=== PATIENT | female | born 1965 | race Caucasian/White ===

== ENCOUNTER 2018-10-06 10:38 | Emergency (ER) | payer BC ==
[~2018-10-06] VITALS: Ht 160 cm; Wt 95.7 kg
[2018-10-06 11:49] LABS: BASO # 0.1 x10^3/uL (0.0-0.2); BASO % 0 % (0-3); EOS # 0.1 x10^3/uL (0.0-0.7); EOS % 1 % (0-3); HEMOGLOBIN 13.5 g/dL (12.0-15.5); LYMPH # 3.2 x10^3/uL (1.0-4.8); LYMPH % 21 % (24-48); MEAN CORPUSCULAR HEMOGLOBIN 27 pg (25-35); MEAN CORPUSCULAR HGB CONC 33 g/dL (31-37); MEAN CORPUSCULAR VOLUME 83 fL (79-100); MONO # 0.6 x10^3/uL (0.0-1.1); MONO % 4 % (0-9); NEUT # 11.1 x10^3uL (1.8-7.7); NEUT % 74 % (31-73); PLATELET COUNT 428 x10^3/uL (140-400); RED BLOOD COUNT 4.92 x10^6/uL (3.50-5.40); WHITE BLOOD COUNT 15.2 x10^3/uL (4.0-11.0)
[2018-10-06 11:55] LABS: BILIRUBIN,URINE NEGATIVE (NEG); CLARITY,URINE CLEAR; COLOR,URINE YELLOW; NITRITE,URINE NEGATIVE (NEG); PROTEIN,URINE NEGATIVE (NEG-TRACE); UROBILINOGEN,URINE 0.2 mg/dL (0.2 mg/dL)
[2018-10-06 11:57] LABS: CALCIUM 9.1 mg/dL (8.5-10.1); CREATININE 0.8 mg/dL (0.6-1.0); GFR 74.7
[2018-10-06 11:59] LABS: PROTHROMBIN TIME PATIENT 12.7 SEC (11.7-14.0)
[2018-10-06] MEDS ORDERED: CONTRAST GIVEN. MC PRN (12:00)
[2018-10-06] MEDS: IOHEXOL 240 MG/ML 50ML VIAL. PO ONE (12:00)
[2018-10-06 12:03] LABS: ALBUMIN 3.3 g/dL (3.4-5.0); TOTAL BILIRUBIN 0.2 mg/dL (0.2-1.0); TOTAL PROTEIN 6.7 g/dL (6.4-8.2)
[2018-10-06 12:06] LABS: BACTERIA,URINE FEW /HPF (0-FEW); RBC,URINE 0 /HPF (0-2); SQUAMOUS EPITHELIAL CELL,UR FEW /LPF
[2018-10-06] MEDS: PANTOPRAZOLE IV PUSH 40 MG VIAL. IVP ONE (12:12)
[2018-10-06] MEDS: IV NORMAL SALINE 1000ML BAG 1,000 ML IV ONE (12:12)
[2018-10-06] MEDS: IOHEXOL 300 MG/ML 100ML VIAL. IV ONE (13:08)
--- NOTE | 2018-10-06 13:33 | PHYS DOC ---
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 Patient complaining of lower abdominal cramping pain since this morning and 3 episodes of bright red bleeding with a small amount of blood without clots since this morning. Patient states she had a normal bowel movement yesterday and this morning did not have any bowel movement or rectal pain. Patient denies history of rectal bleeding and taking anticoagulation and NSAIDS. Patient rated her abdominal pain as a moderate pain and denies nausea and vomiting, urinary symptoms, fever and chills, chest pain and shortness of breath. Review of Systems Review of Systems Constitutional: Denies fever or chills [] Eyes: Denies change in visual acuity, redness, or eye pain [] HENT: Denies nasal congestion or sore throat [] Respiratory: Denies cough or shortness of breath [] Cardiovascular: No additional information not addressed in HPI [] GI: Reports abdominal pain, rectal bleeding, denies vomiting, constipation or diarrhea [] : Denies dysuria or hematuria [] Musculoskeletal: Denies back pain or joint pain [] Integument: Denies rash or skin lesions [] Neurologic: Denies headache, focal weakness or sensory changes [] Endocrine: Denies polyuria or polydipsia [] All other systems were reviewed and found to be within normal limits, except as documented in this note. Current Medications Current Medications Current Medications Medications (Trade) Dose Ordered Sig/[facility] Start Time Stop Time Status Last Admin Dose Admin Fentanyl Citrate (Fentanyl 2ml Vial) 50 mcg 1X ONCE 10/06/18 13:30 10/06/18 13:34 DC 10/06/18 14:02 50 MCG Info (CONTRAST GIVEN -- Rx MONITORING) 1 each PRN DAILY PRN 10/06/18 12:00 10/06/18 14:33 DC Iohexol (Omnipaque 240 Mg/ml) 30 ml 1X ONCE 10/06/18 12:00 10/06/18 12:01 DC 10/06/18 12:00 30 ML Iohexol (Omnipaque 300 Mg/ml) 75 ml 1X ONCE 10/06/18 12:00 10/06/18 12:01 DC 10/06/18 13:08 75 ML Pantoprazole Sodium (PROTONIX VIAL for IV PUSH) 40 mg 1X ONCE 10/06/18 11:45 10/06/18 11:59 DC 10/06/18 12:12 40 MG Sodium Chloride 1,000 ml @ 1,000 mls/hr 1X ONCE 10/06/18 11:45 10/06/18 12:44 DC 10/06/18 12:12 1,000 MLS/HR Allergies Allergies Allergies Coded Allergies Type Severity Reaction Last Updated Verified ibuprofen Allergy Intermediate 10/06/18 Yes Physical Exam Physical Exam Constitutional: Well developed, well nourished, mild distress, non-toxic appearance. [] HENT: Normocephalic, atraumatic, oropharynx dry. Eyes: PERRLA, EOMI, conjunctiva normal, no discharge. [] Neck: Normal range of motion, no tenderness, supple, no stridor. [] Cardiovascular:Heart rate regular rhythm, no murmur [] Lungs & Thorax: Bilateral breath sounds clear to auscultation [] Abdomen: Bowel sounds normal, soft, no tenderness, no masses, no pulsatile mass es. Rectal exam with present of glost tile shader showed normal external anal area without hemorrhoid or anal fissure, sphincter tone, a small amount of blood in rectum. Skin: Warm, dry, no erythema, no rash. [] Back: No tenderness, no CVA tenderness. [] Extremities: No tenderness, no cyanosis, no clubbing, ROM intact, no edema. [] Neurologic: Alert and oriented X 3, normal motor function, normal sensory function, no focal deficits noted. [] Psychologic: Affect normal, judgement normal, mood normal. [] Current Patient Data Vital Signs Vital Signs Date Time Temp Pulse Resp B/P (MAP) Pulse Ox O2 Delivery O2 Flow Rate FiO2 10/06/18 14:00 66 16 142/68 (92) 99 Room Air 10/06/18 11:36 98.6 98.6 Lab Values Laboratory Tests Test 10/06/18 11:00 10/06/18 11:25 Urine Collection Type Unknown Urine Color Yellow Urine Clarity Clear Urine pH 5.0 Urine Specific [place] 1.015 Urine Protein Negative mg/dL (NEG-TRACE) Urine Glucose (UA) Negative mg/dL (NEG) Urine Ketones (Stick) Negative mg/dL (NEG) Urine Blood Negative (NEG) Urine Nitrite Negative (NEG) Urine Bilirubin Negative (NEG) Urine Urobilinogen Dipstick 0.2 mg/dL (0.2 mg/dL) Urine Leukocyte Esterase Trace (NEG) Urine RBC 0 /HPF (0-2) Urine WBC 1-4 /HPF (0-4) Urine Squamous Epithelial Cells Few /LPF Urine Bacteria Few /HPF (0-FEW) White Blood Count 15.2 x10^3/uL (4.0-11.0) H Red Blood Count 4.92 x10^6/uL (3.50-5.40) Hemoglobin 13.5 g/dL (12.0-15.5) Hematocrit 41.0 % (36.0-47.0) Mean Corpuscular Volume 83 fL (79-100) Mean Corpuscular Hemoglobin 27 pg (25-35) Mean Corpuscular Hemoglobin Concent 33 g/dL (31-37) Red Cell Distribution Width 14.0 % (11.5-14.5) Platelet Count 428 x10^3/uL (140-400) H Neutrophils (%) (Auto) 74 % (31-73) H Lymphocytes (%) (Auto) 21 % (24-48) L Monocytes (%) (Auto) 4 % (0-9) Eosinophils (%) (Auto) 1 % (0-3) Basophils (%) (Auto) 0 % (0-3) Neutrophils # (Auto) 11.1 x10^3uL (1.8-7.7) H Lymphocytes # (Auto) 3.2 x10^3/uL (1.0-4.8) Monocytes # (Auto) 0.6 x10^3/uL (0.0-1.1) Eosinophils # (Auto) 0.1 x10^3/uL (0.0-0.7) Basophils # (Auto) 0.1 x10^3/uL (0.0-0.2) Prothrombin Time 12.7 SEC (11.7-14.0) Prothrombin Time INR 1.0 (0.8-1.1) PTT 27 SEC (24-38) Sodium Level 141 mmol/L (136-145) Potassium Level 4.0 mmol/L (3.5-5.1) Chloride Level 104 mmol/L (98-107) Carbon Dioxide Level 25 mmol/L (21-32) Anion Gap 12 (6-14) Blood Urea Nitrogen 10 mg/dL (7-20) Creatinine 0.8 mg/dL (0.6-1.0) Estimated GFR (Cockcroft-Gault) 74.7 BUN/Creatinine Ratio 13 (6-20) Glucose Level 123 mg/dL (70-99) H Calcium Level 9.1 mg/dL (8.5-10.1) Total Bilirubin 0.2 mg/dL (0.2-1.0) Aspartate Amino Transferase (AST) 20 U/L (15-37) Alanine Aminotransferase (ALT) 24 U/L (14-59) Alkaline Phosphatase 87 U/L (46-116) Total Protein 6.7 g/dL (6.4-8.2) Albumin 3.3 g/dL (3.4-5.0) L Albumin/Globulin Ratio 1.0 (1.0-1.7) Laboratory Tests 10/06/18 11:25 Laboratory Tests 10/06/18 11:25 EKG EKG [] Radiology/Procedures Radiology/Procedures [facility] [address] [place], [place] [id number] IMAGING REPORT Signed PATIENT: LUCIO ROSSI ACCOUNT: [id number] : 1965 LOCATION: ER AGE: 53 SEX: F EXAM STATUS: REG ER ORD. PHYSICIAN: CLAUDIA ALCANTARA MD REASON: rectal bleeding PROCEDURE: CT ABD PELV W/ORAL&IV CONTRAST PQRS Compliance Statement: One or more of the following individualized dose reduction techniques were utilized for this examination: 1. Automated exposure control 2. Adjustment of the mA and/or kV according to patient size 3. Use of iterative reconstruction technique CT ABD PELV W/ORAL IV CONTRAST Clinical Indication: Rectal bleeding, abdominal pain. Comparison: None. Technique: Helical CT imaging of the abdomen and pelvis is performed after 75 cc of Omnipaque 300 IV contrast. Oral contrast also given. Findings: The lung bases are clear. Cardiac size normal. Fatty infiltration of the liver, focal fatty sparing along the gallbladder fossa. The gallbladder, spleen, pancreas, and adrenal glands are normal. Kidneys enhance symmetrically, no hydronephrosis. There are 2 small probable right renal cysts. Stomach unremarkable. No dilated small bowel. The appendix is normal. There are a few diverticula of the distal colon. There is wall thickening of the distal transverse and proximal and mid descending colon. No surrounding inflammation is seen. No other colon wall thickening. There is a massiel hepatis lymph node measuring 1.4 cm. There is a massiel hepatis/precaval lymph node measuring 1.4 cm. No abdominal free fluid. Atrophic uterus. Urinary bladder is not well distended accentuating wall thickness. No pelvic free fluid. No acute bone abnormality. IMPRESSION: 1. Wall thickening of the distal transverse and proximal and mid descending colon suggestive of nonspecific colitis. Etiologies include infectious, inflammatory bowel disease, or ischemic given the distribution (however minimal atherosclerotic disease is seen). 2. Fatty infiltration of the liver. 3. There are 2 mildly enlarged massiel hepatis lymph nodes, nonspecific. 4. Mild distal colon diverticulosis without diverticulitis. Electronically signed by: Pascual Farrell MD (10/06/2018 1:32 PM) [id number] DICTATED and SIGNED BY: PASCUAL FARRELL MD DATE: 10/06/18 1332 Course & Med Decision Making Course & Med Decision Making Pertinent Labs and Imaging studies reviewed. (See chart for details) Evaluation of patient in ER showed 53-year-old female patient with complaining of rectal bleeding since this morning with lower abdominal cramping pain. She had stable vital signs and unremarkable labs except for mild leukocytosis. CT of abdomen and pelvis showed colitis. Patient never had colonoscopy. Patient was advised to follow-up with GI specialist for possible colonoscopy and return to ER if continued to have rectal bleeding. Dragon Disclaimer Dragon Disclaimer This electronic medical record was generated, in whole or in part, using a voice recognition dictation system. Departure Departure Impression: Primary Impression: Rectal bleeding Additional Impressions: Colitis Elevated blood pressure reading without diagnosis of hypertension Disposition: 01 HOME, SELF-CARE (at 1418) Condition: IMPROVED Referrals: UNKNOWN PCP NAME (PCP) JW BROWN MD Patient Instructions: Colitis, Form - Blood Pressure Record Sheet, How to Take Your Blood Pressure, [id number], Managing Your High Blood Pressure, Rectal Bleeding Additional Instructions: Drink plenty of liquids Follow-up with your primary care physician in 3-5 days Return to ER if not getting better Follow up with on-call surgeon for possible colonoscopy Scripts Hydrocodone/Apap 5-325 (NORCO 5-325 TABLET) 1 Each Tablet 1 TAB PO PRN Q6HRS PRN for PAIN, #14 TAB 0 Refills Prov: CLAUDIA ALCANTARA MD 10/06/18 Problem Qualifiers CLAUDIA ALCANTARA MD October 06, 2018 13:33
[2018-10-06 14:00] VITALS: BP 142/68
[2018-10-06] MEDS: fentaNYL PF VIAL 100 MCG/2 ML VIAL IV ONE (14:02)
[2018-10-06] MEDS ORDERED: HYDR-3164 PO (14:19)
== END 2018-10-06 14:27 | disposition home or self-care (01) ==
LOC: ER 10:38
DX: K52.89 Other specified noninfective gastroenteritis and colitis (principal); K62.5 Hemorrhage of anus and rectum; K57.32 Diverticulitis of large intestine without perforation or abscess without bleeding; K76.0 Fatty (change of) liver, not elsewhere classified; M19.90 Unspecified osteoarthritis, unspecified site; F17.200 Nicotine dependence, unspecified, uncomplicated; Z98.890 Other specified postprocedural states; Z88.6 Allergy status to analgesic agent
CPT/HCPCS: 36415; 74177; 80053; 81001; 85025; 85610; 85730; 86850; 86900; 86901; 96361; 96374; 96375; 99285; C9113; J3010; J7030; Q9966; Q9967

== ENCOUNTER 2019-06-08 12:35 | Emergency (ER) | payer BC ==
[~2019-06-08] VITALS: Ht 162.6 cm; Wt 102.2 kg
[~2019-06-08 12:35] MED LIST: HYDR-3164 PO
[2019-06-08 12:55] VITALS: BP 151/88
--- NOTE | 2019-06-08 14:08 | RAD ---
Examination: LUMBAR SPINE 2-3V, HIP LEFT 2V WITH PELVIS History: Fall, pain Comparison/Correlation: None Findings: Frontal and lateral views of the lumbar spine were obtained. Coned-down L5-S1 lateral views also provided. Frontal view of the pelvis, frontal view of the left hip, and frog leg lateral view of the left hip were provided. Alignment is normal. Mild disc space narrowing at L3-4 and L4-5 noted. Spurring noted. No fracture or bone destruction. The joint spaces are unremarkable. Sacroiliac joints are grossly unremarkable minimal subchondral sclerosis and narrowing. No definite degenerative change of the hip joints. Impression: Mild low lumbar spine degenerative change. No suspicious findings of the left hip joint. Consider further evaluation if occult process is a persistent concern. Electronically signed by: Francis Bustamante MD (06/08/2019 2:05 PM) [facility]
[2019-06-08] MEDS ORDERED: METH4TAB2 PO (15:13)
[2019-06-08] MEDS ORDERED: CYCL10TA2 PO (15:13)
[2019-06-08] MEDS ORDERED: DICL50TA2 PO (15:13)
--- NOTE | 2019-06-08 15:14 | PHYS DOC ---
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 Patient denies any loss of consciousness. She states the pain is worse on ambulating as well as sitting on her left hip. Denies anything specifically relieving the pain. Denies any loss of bowel/bladder function. Review of Systems Review of Systems Constitutional: Denies fever or chills [] GI: Denies abdominal pain, nausea, vomiting, bloody stools or diarrhea [] : Denies dysuria or hematuria [] Musculoskeletal: Reports low back pain radiating to the right LE Integument: Denies rash or skin lesions [] Neurologic: Denies headache, focal weakness or sensory changes [] All other systems were reviewed and found to be within normal limits, except as documented in this note. Allergies Allergies Allergies Coded Allergies Type Severity Reaction Last Updated Verified Penicillins Allergy Intermediate 06/08/19 Yes Physical Exam Physical Exam Constitutional: Well developed, well nourished, no acute distress, non-toxic appearance. [] HENT: Normocephalic, atraumatic, bilateral external ears normal, oropharynx moist, no oral exudates, nose normal. [] Eyes: PERRLA, EOMI, conjunctiva normal, no discharge. [] Neck: Normal range of motion, no tenderness, supple, no stridor. [] Cardiovascular:Heart rate regular rhythm, no murmur [] Lungs & Thorax: Bilateral breath sounds clear to auscultation [] Abdomen: Bowel sounds normal, soft, no tenderness, no masses, no pulsatile masses. [] Skin: Warm, dry, no erythema, no rash. [] Back: No tenderness, no CVA tenderness. [] Extremities: No tenderness, no cyanosis, no clubbing, ROM intact, no edema. [] Neurologic: Alert and oriented X 3, normal motor function, normal sensory function, no focal deficits noted. [] Psychologic: Affect normal, judgement normal, mood normal. [] Current Patient Data Vital Signs Vital Signs Date Time Temp Pulse Resp B/P (MAP) Pulse Ox O2 Delivery O2 Flow Rate FiO2 06/08/19 12:55 98.9 78 19 151/88 (109) 98 Room Air 98.9 EKG EKG [] Radiology/Procedures Radiology/Procedures []PROCEDURE: LUMBAR SPINE 2-3V Examination: LUMBAR SPINE 2-3V, HIP LEFT 2V WITH PELVIS History: Fall, pain Comparison/Correlation: None Findings: Frontal and lateral views of the lumbar spine were obtained. Coned-down L5-S1 lateral views also provided. Frontal view of the pelvis, frontal view of the left hip, and frog leg lateral view of the left hip were provided. Alignment is normal. Mild disc space narrowing at L3-4 and L4-5 noted. Spurring noted. No fracture or bone destruction. The joint spaces are unremarkable. Sacroiliac joints are grossly unremarkable minimal subchondral sclerosis and narrowing. No definite degenerative change of the hip joints. Impression: Mild low lumbar spine degenerative change. No suspicious findings of the left hip joint. Consider further evaluation if occult process is a persistent concern. Electronically signed by: Francis Lal MD (06/08/2019 2:05 PM) [facility] DICTATED and SIGNED BY: FRANCIS LAL MD DATE: 06/08/19 1400 Course & Med Decision Making Course & Med Decision Making Pertinent Labs and Imaging studies reviewed. (See chart for details) This is a 54-year-old female patient presenting with left low back pain radiating to the LLE after falling yesterday. X-rays of the lumbar spine, left hip including pelvis are negative. Discharged to home. Follow-up with PCP in 1-2 weeks. Dragon Disclaimer Dragchelsea Disclaimer This electronic medical record was generated, in whole or in part, using a voice recognition dictation system. Departure Departure Impression: Primary Impression: Fall from standing Additional Impressions: Lumbar contusion Sciatica of left side Disposition: HOME, SELF-CARE Condition: STABLE Referrals: UNKNOWN PCP NAME (PCP) follow up with your doctor in 1-2 weeks Patient Instructions: Contusion, [id number], Sciatica, [id number] Additional Instructions: You were evaluated in the emergency room, your left hip x-rays including pelvis as well as a low back x-rays are negative for any acute findings. Take the prescribed medications as ordered. Follow-up with your own doctor in 1-2 weeks Scripts Diclofenac Potassium (DICLOFENAC POTASSIUM) 50 Mg Tablet 1 TAB PO BID, #20 TAB Prov: SHANTANU GROVER SHARATH 06/08/19 Methylprednisolone (MEDROL) 4 Mg Tab.ds.pk 1 PKG PO UD, #1 PKG Prov: SHANTANU GROVER MATERIALS DIRECTOR 06/08/19 Cyclobenzaprine Hcl (CYCLOBENZAPRINE HCL) 10 Mg Tablet 1 TAB PO TID, #30 TAB Prov: SHANTANU GROVER SHARATH 06/08/19 Problem Qualifiers Primary Impression: Fall from standing Encounter type: initial encounter Qualified Codes: W19.XXXA - Unspecified fall, initial encounter Additional Impressions: Lumbar contusion Encounter type: initial encounter Qualified Codes: S30.0XXA - Contusion of lower back and pelvis, initial encounter REILLYSHANTANU SHARATH Jun 08, 2019 15:14
== END 2019-06-08 15:15 | disposition home or self-care (01) ==
LOC: ER 12:35
DX: S30.0XXA Contusion of lower back and pelvis, initial encounter (principal); M54.42 Lumbago with sciatica, left side; M25.552 Pain in left hip; M19.90 Unspecified osteoarthritis, unspecified site; F43.12 Post-traumatic stress disorder, chronic; Z98.890 Other specified postprocedural states; Z88.0 Allergy status to penicillin; W18.30XA Fall on same level, unspecified, initial encounter; Y93.89 Activity, other specified; Y92.89 Other specified places as the place of occurrence of the external cause; Y99.8 Other external cause status
CPT/HCPCS: 72100; 73502; 99284

== ENCOUNTER 2019-11-10 00:47 | Emergency (ER) | payer BC ==
[~2019-11-10] VITALS: Ht 160 cm; Wt 103.6 kg
[~2019-11-10 00:47] MED LIST changes: +CYCL10TA2 PO; +DICL50TA2 PO; +METH4TAB2 PO
[2019-11-10 01:17] VITALS: BP 138/71
[2019-11-10] MEDS ORDERED: CIPR7.5D AD (01:47)
[2019-11-10] MEDS ORDERED: TRAM50TA PO (01:47)
[2019-11-10] MEDS ORDERED: CEFD300C PO (01:47)
--- NOTE | 2019-11-10 01:47 | PHYS DOC ---
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 Patient states that she has been cleaning it out a lot because it has been bothering her. She states that when she pulls on her ear, she can feel fluid draining down the back of her throat. She states that it is painful to pull on the ear however. She denies any fever. She states that pain radiates down into her shoulder. [] Review of Systems: Review of Systems: Constitutional: Denies fever or chills. [] Eyes: Denies change in visual acuity. [] HENT: Complains of right ear pain. [] Respiratory: Denies cough or shortness of breath. [] Cardiovascular: Denies chest pain or edema. [] [] Integument: Denies rash. [] Heart Score: Risk Factors: Risk Factors: DM, Current or recent (<one month) smoker, HTN, HLP, family history of CAD, obesity. Risk Scores: Score 0 - 3: 2.5% MACE over next 6 weeks - Discharge Home Score 4 - 6: 20.3% MACE over next 6 weeks - Admit for Clinical Observation Score 7 - 10: 72.7% MACE over next 6 weeks - Early Invasive Strategies Allergies: Allergies: Allergies Coded Allergies Type Severity Reaction Last Updated Verified Penicillins Allergy Intermediate 06/08/19 Yes Physical Exam: PE: Constitutional: Well developed, well nourished, no acute distress, non-toxic appearance. [] HENT: Normocephalic, atraumatic, right otic canal is red and swollen. [] Neck: Normal range of motion, no tenderness, supple, no stridor. [] Cardiovascular:Heart rate regular rhythm, no murmur [] Lungs & Thorax: Bilateral breath sounds clear to auscultation [] Neurologic: Alert and oriented X 3, no focal deficits noted. [] Current Patient Data: Vital Signs: Vital Signs Date Time Temp Pulse Resp B/P (MAP) Pulse Ox O2 Delivery O2 Flow Rate FiO2 11/10/19 01:17 98.4 79 20 138/71 (93) 93 Room Air 98.4 EKG: EKG: [] Radiology/Procedures: Radiology/Procedures: [] Course & Med Decision Making: Course & Med Decision Making Pertinent Labs and Imaging studies reviewed. (See chart for details) [] Dragon Disclaimer: Dragon Disclaimer: This electronic medical record was generated, in whole or in part, using a voice recognition dictation system. Departure Departure Impression: Primary Impression: Otitis externa Qualified Codes: H60.501 - Unspecified acute noninfective otitis externa, right ear Disposition: HOME, SELF-CARE Condition: STABLE Referrals: NO PCP (PCP) Patient Instructions: Otitis Externa Scripts Tramadol Hcl (TRAMADOL HCL) 50 Mg Tablet 50 MG PO Q6HRS PRN for PAIN, #10 TAB Prov: TRICIA BECKMAN Jr. DO 11/10/19 Cefdinir (CEFDINIR) 300 Mg Capsule 1 CAP PO BID, #20 CAP Prov: TRICIA BECKMAN Jr. DO 11/10/19 Ciprofloxacin Hcl/Dexameth (CIPRODEX OTIC SUSPENSION) 7.5 Ml Drops.susp 4 DROP AD BID, #7.5 ML Prov: TRICIA BECKMAN Jr. DO 11/10/19 Justicifation of Admission Dx: Justifications for Admission: Justification of Admission Dx: Comment: (Not applicable) TRICIA BECKMAN Jr. DO Nov 10, 2019 01:47
== END 2019-11-10 01:50 | disposition home or self-care (01) ==
LOC: ER 00:47
DX: H60.8X1 Other otitis externa, right ear (principal); F17.200 Nicotine dependence, unspecified, uncomplicated; F43.12 Post-traumatic stress disorder, chronic; Z98.890 Other specified postprocedural states; Z88.0 Allergy status to penicillin
CPT/HCPCS: 99283

== ENCOUNTER 2019-11-12 16:55 | Emergency (ER) | payer BC ==
[~2019-11-12] VITALS: Ht 162.6 cm; Wt 110.0 kg
[~2019-11-12 16:55] MED LIST changes: +CEFD300C PO; +CIPR7.5D AD; +TRAM50TA PO
[2019-11-12] MEDS ORDERED: DEXAMETHASONE SOD PHOS 20 MG/5 ML VIAL. PO ONE (17:15)
--- NOTE | 2019-11-12 17:44 | PHYS DOC ---
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 Patient states that this started today. Patient was seen in the ER 2 days ago diagnosed with a ear infection and was prescribed cefdinir, Ciprodex. Patient states that she still has pain in her right ear but she is more concerned about her difficulty in swallowing. Patient denies sore throat. Patient states that when she drinks water she is able to swallow. (VIKKI YOUNG DO) Review of Systems: Review of Systems: Constitutional: Denies fever or chills. [] Eyes: Denies change in visual acuity. [] HENT: Denies nasal congestion or sore throat. [] Respiratory: Denies cough or shortness of breath. [] Cardiovascular: Denies chest pain or edema. [] GI: Denies abdominal pain, nausea, vomiting, bloody stools or diarrhea. [] : Denies dysuria. [] Musculoskeletal: Denies back pain or joint pain. [] Integument: Denies rash. [] Neurologic: Denies headache, focal weakness or sensory changes. [] Endocrine: Denies polyuria or polydipsia. [] Lymphatic: Denies swollen glands. [] Psychiatric: Denies depression or anxiety. [] (HECTORVIKKIYA Matias DO) Heart Score: Risk Factors: Risk Factors: DM, Current or recent (<one month) smoker, HTN, HLP, family history of CAD, obesity. Risk Scores: Score 0 - 3: 2.5% MACE over next 6 weeks - Discharge Home Score 4 - 6: 20.3% MACE over next 6 weeks - Admit for Clinical Observation Score 7 - 10: 72.7% MACE over next 6 weeks - Early Invasive Strategies (VIKKI YOUNG DO) Current Medications: Current Medications Medications (Trade) Dose Ordered Sig/Lenny Start Time Stop Time Status Last Admin Dose Admin Dexamethasone Sodium Phosphate (Decadron) 10 mg 1X ONCE 11/12/19 17:15 11/12/19 17:24 DC 11/12/19 17:29 10 MG (GOLLAPALLI,VIKKI E DO) Allergies: Allergies: Allergies Coded Allergies Type Severity Reaction Last Updated Verified Penicillins Allergy Intermediate 06/08/19 Yes (GOLLAPALLI,VIKKI E DO) Physical Exam: PE: Constitutional: Well developed, well nourished, no acute distress, non-toxic appearance. [] HENT: Normocephalic, atraumatic Eyes: EOMI Neck: Normal range of motion, no pharyngeal erythema Cardiovascular:Heart rate regular rhythm Lungs & Thorax: Bilateral breath sounds clear to auscultation [] Abdomen: Bowel sounds normal, soft, no tenderness Extremities: No tenderness, ROM intact Neurologic: Alert and oriented X 3 (GOLLAPALLI,VIKKI E DO) Current Patient Data: Vital Signs: Vital Signs Date Time Temp Pulse Resp B/P (MAP) Pulse Ox O2 Delivery O2 Flow Rate FiO2 11/12/19 17:02 98.2 91 16 137/83 (101) 97 Room Air 98.2 (GOLLAPALLI,VIKKI E DO) EKG: EKG: [] (GOLLAPALLI,VIKKI E DO) Radiology/Procedures: Radiology/Procedures: [] (GOLLAPALLI,VIKKI E DO) Course & Med Decision Making: Course & Med Decision Making Pertinent Labs and Imaging studies reviewed. (See chart for details) [] (GOLLAPALLI,VIKKI E DO) Course & Med Decision Making Assumed care at shift change- disposition pending re-evaluation and CT imaging. Results reviewed and discussed with patient. MPRESSION: 1. Mild enlargement of the palatine and lingual tonsils, may be infectious or inflammatory in etiology. 2. Focal narrowing of the airway at the level of the vocal cords, could be related to focal inflammation. Correlate with symptomatology to determine the need for direct visualization. Patient complaints of difficulty swallowing. Patient denies any airway issues, difficulty breathing, or horse voice. Patient tolerated PO in the ER. States she was seen several days for ear pain and Rx eardrops and oral antibotics. Patient states she only took the eardrops. Patient denies any improvement of ear pain. Exam- No stridor Normal voice Swallows without issue Pain long eustachian tube on the right Treatment with decadron PO in ER. Will discharge home on zithromax and naprosyn. Patient give strict return precautions for re-evaluation for return of difficulty swallowing, fever, and difficulty breathing. (NOMI WRIGHT DO) Oziel Disclaimer: Oziel Disclaimer: This electronic medical record was generated, in whole or in part, using a voice recognition dictation system. (VIKKI YOUNG DO) Departure Departure Impression: Primary Impression: Pharyngitis Additional Impression: Narrowing of airway Disposition: HOME, SELF-CARE Condition: STABLE Referrals: NO PCP (PCP) Patient Instructions: Tonsillitis Scripts Naproxen (NAPROSYN) 500 Mg Tablet 1 TAB PO BID for pain for 30 Days, #20 TAB 0 Refills Prov: NOMI WRIGHT DO 11/12/19 Azithromycin (ZITHROMAX) 250 Mg Tablet 1 PKG PO UD, #6 TAB Prov: NOMI WRIGHT DO 11/12/19 Justicifation of Admission Dx: Justifications for Admission: Justification of Admission Dx: Comment: (VIKKI YOUNG DO) VIKKI YOUNG DO Nov 12, 2019 17:43 NOMI WRIGHT DO Nov 12, 2019 19:59
[2019-11-12] MEDS ORDERED: IV NORMAL SALINE 1000ML BAG 1,000 ML IV ONE (17:45)
--- NOTE | 2019-11-12 17:47 | RAD ---
Exam: Neck radiographs INDICATION: Dysphasia TECHNIQUE: Frontal and lateral views the neck Comparisons: None FINDINGS: Visualized prevertebral soft tissues are unremarkable. Straightening of cervical spine may be positional. No acute fractures identified. IMPRESSION: Unremarkable neck radiographs. Electronically signed by: Genevieve Moore MD (11/12/2019 5:44 PM) [id number]
[2019-11-12 18:16] LABS: BASO # 0.1 x10^3/uL (0.0-0.2); BASO % 1 % (0-3); EOS # 0.1 x10^3/uL (0.0-0.7); EOS % 1 % (0-3); HEMATOCRIT 38.8 % (36.0-47.0); HEMOGLOBIN 13.5 g/dL (12.0-15.5); LYMPH # 2.4 x10^3/uL (1.0-4.8); LYMPH % 24 % (24-48); MEAN CORPUSCULAR HEMOGLOBIN 30 pg (25-35); MEAN CORPUSCULAR HGB CONC 35 g/dL (31-37); MEAN CORPUSCULAR VOLUME 87 fL (79-100); MONO # 0.6 x10^3/uL (0.0-1.1); MONO % 6 % (0-9); NEUT # 7.1 x10^3/uL (1.8-7.7); NEUT % 68 % (31-73); PLATELET COUNT 251 x10^3/uL (140-400); RED BLOOD COUNT 4.49 x10^6/uL (3.50-5.40); RED CELL DISTRIBUTION WIDTH 15.5 % (11.5-14.5); WHITE BLOOD COUNT 10.3 x10^3/uL (4.0-11.0)
[2019-11-12 18:33] LABS: CALCIUM 8.9 mg/dL (8.5-10.1); CREATININE 1.2 mg/dL (0.6-1.0); GFR 46.6
[2019-11-12 18:38] LABS: ALBUMIN 3.6 g/dL (3.4-5.0); TOTAL BILIRUBIN 0.3 mg/dL (0.2-1.0); TOTAL PROTEIN 7.2 g/dL (6.4-8.2)
[2019-11-12] MEDS ORDERED: IOHEXOL 300 MG/ML 100ML VIAL. IV ONE (19:15)
--- NOTE | 2019-11-12 19:16 | RAD ---
Exam: CT soft tissue neck with contrast INDICATION: Dysphasia TECHNIQUE: Sequential axial images through the neck obtained following the administration of 60 mL of Omni 300 IV contrast. Sagittal and coronal reformatted images were reconstructed from the axial data and reviewed. Comparisons: Radiograph same day FINDINGS: Visualized intracranial structures are unremarkable. Visualized portions of the paranasal sinuses and mastoid air cells are well-pneumatized. Cervical vasculature is patent. Mild enlargement of the palatine and lingual tonsils. There is focal narrowing of the airway at the level of the vocal cords which could be related to phonation. Otherwise, nasopharynx, oropharynx, hypopharynx and larynx are patent. Thyroid and salivary glands are within normal limits. No enlarged cervical lymph nodes are identified. Visualized lung apices are clear. No suspicious osseous lesions or acute fractures. IMPRESSION: 1. Mild enlargement of the palatine and lingual tonsils, may be infectious or inflammatory in etiology. 2. Focal narrowing of the airway at the level of the vocal cords, could be related to focal inflammation. Correlate with symptomatology to determine the need for direct visualization. Exposure: One or more of the following in the visualized dose reduction techniques were utilized for this examination: 1. Automated exposure control 2. Adjustment of the MA and/or KV according to patient size 3. Use of iterative of reconstructive technique Electronically signed by: Genevieve Moore MD (11/12/2019 7:13 PM) [id number]
[2019-11-12] MEDS ORDERED: DEXAMETHASONE 4 MG TABLET PO ONE (19:45)
[2019-11-12] MEDS ORDERED: AZIT250T PO (19:59)
[2019-11-12] MEDS ORDERED: NAPR-683 PO (19:59)
[2019-11-12 20:22] VITALS: BP 129/66
== END 2019-11-12 20:25 | disposition home or self-care (01) ==
LOC: ER 16:55
DX: J02.9 Acute pharyngitis, unspecified (principal); R47.02 Dysphasia; H92.01 Otalgia, right ear; F41.9 Anxiety disorder, unspecified; F17.200 Nicotine dependence, unspecified, uncomplicated; F43.12 Post-traumatic stress disorder, chronic; Z98.890 Other specified postprocedural states; Z88.0 Allergy status to penicillin; Z79.899 Other long term (current) drug therapy
CPT/HCPCS: 36415; 70360; 70491; 80053; 85025; 99285; J1100; J7030; J8540; Q9967

== ENCOUNTER 2021-05-14 12:58 | Emergency (ER) | payer BC ==
[~2021-05-14] VITALS: Ht 162.6 cm; Wt 97.3 kg
[~2021-05-14 12:58] MED LIST changes: +AZIT250T PO; +CYCL10TA19 PO; -CYCL10TA2 PO; +NAPR-683 PO
--- NOTE | 2021-05-14 14:36 | PHYS DOC ---
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 Patient reports that she was walking her dog yesterday got tangled in the dog's leash and fell onto her elbow. She is reporting most of her pain to the anterior aspect of her left shoulder. She rates her pain 10 out of 10. She denies any treatment prior to arrival. She reports decreased range of motion due to pain. Patient reports that the pain is improved when she raises her arm above her head but reports that she cannot move her arm at the same time. She denies hitting her head. She denies any decreased sensation in her hand. No blood thinner use. (CHRYSTAL WAITE APRN) Review of Systems: Review of Systems: 14 body systems of the review of systems have been reviewed. See HPI for pertinent positive and negative responses, otherwise all other systems are negative, nonpertinent or noncontributory (CHRYSTAL WAITE APRN) Heart Score: C/O Chest Pain: N/A Risk Factors: Risk Factors: DM, Current or recent (<one month) smoker, HTN, HLP, family history of CAD, obesity. Risk Scores: Score 0 - 3: 2.5% MACE over next 6 weeks - Discharge Home Score 4 - 6: 20.3% MACE over next 6 weeks - Admit for Clinical Observation Score 7 - 10: 72.7% MACE over next 6 weeks - Early Invasive Strategies (CHRYSTAL WAITE APRN) Allergies: Allergies: Allergies Coded Allergies Type Severity Reaction Last Updated Verified Penicillins Allergy Intermediate 06/08/19 Yes (CHRYSTAL WAITE APRN) Physical Exam: PE: Constitutional: Well developed, well nourished, no acute distress, non-toxic appearance. [] HENT: Normocephalic, atraumatic, bilateral external ears normal, oropharynx moist, no oral exudates, nose normal. [] Eyes: PERRL, EOMI, conjunctiva normal, no discharge. [] Neck: Normal range of motion, no tenderness, supple, no stridor. [] Cardiovascular:Heart rate regular rhythm, no murmur [] Lungs & Thorax: Bilateral breath sounds clear to auscultation [] Abdomen: Bowel sounds normal, soft, no tenderness, no masses, no pulsatile masses. [] Skin: Warm, dry, no erythema, no rash. [] Back: Normal range of motion Extremities: No tenderness, no cyanosis, no clubbing, ROM intact, no edema. Left shoulder: No obvious deformity, no wounds to shoulder, decreased range of motion due to pain, neuro intact. Patient does have an abrasion noted to her left elbow. She is not reporting any pain to her elbow and her elbow has good range of motion. Neurologic: Alert and oriented X 3, normal motor function, normal sensory function, no focal deficits noted. [] Psychologic: Affect normal, judgement normal, mood normal. [] (CHRYSTAL WAITE APRN) EKG: EKG: [] (CHRYSTAL WAITE APRN) Radiology/Procedures: Radiology/Procedures: []PROCEDURE: SHOULDER 2+V LEFT EXAM: Left shoulder, 3 views. HISTORY: Pain. COMPARISON: None. FINDINGS: 3 views of the left shoulder obtained. There is no acute fracture, dislocation or subluxation. IMPRESSION: No acute osseous finding. Electronically signed by: Padmini Wells MD (05/14/2021 2:49 PM) [id number] DICTATED and SIGNED BY: PADMINI WELLS MD DATE: 05/14/21 [id number] 0 (CHRYSTAL WAITE APRN) Course & Med Decision Making: Course & Med Decision Making Pertinent Labs and Imaging studies reviewed. (See chart for details) [] Patient presents to the emergency department for left shoulder pain after falling onto it. X-ray was performed of left shoulder that showed no acute findings. Patient's pain treated in the emergency department. She states that she did drive herself to the emergency department by her is picking her up. Patient's shoulder placed in a sling. Patient advised to take anti- inflammatory medications like ibuprofen or naproxen at home, wear the sling for comfort and follow-up with her primary care provider. I discussed with patient all findings and diagnostic testing as well as the need to follow-up with PCP for further evaluation and treatment or return to the ER if any new or worsening symptoms. Strict return precautions were also discussed at length. Patient voiced understanding and agreement with the plan. Patient is hemodynamically stable at the time of disposition. (CHRYSTAL WAITE APRN) Course & Med Decision Making I was the Attending physician on the above date of service of this patient. This patient was evaluated, examined, treated, and dispositioned from the emergency department by the mid-level practitioner. Although I was working at the time , no assistance was requested. Electronically signed, Vicky Falk DO (VICKY FALK DO) Dragon Disclaimer: Dragon Disclaimer: This electronic medical record was generated, in whole or in part, using a voice recognition dictation system. (CHRYSTAL WAITE APRN) Departure Departure Impression: Primary Impression: Shoulder strain Qualified Codes: S46.912A - Strain of unspecified muscle, fascia and tendon at shoulder and upper arm level, left arm, initial encounter Disposition: HOME / SELF CARE / HOMELESS Condition: GOOD Referrals: NO PCP (PCP) Patient Instructions: Arm Sling Use, [id number] Additional Instructions: You were seen in the emergency department today for shoulder pain. Imaging was performed of your shoulder that showed no acute findings. Your arm was placed in a sling for comfort. Please apply ice and you can take Tylenol and/ibuprofen for your pain at home. Follow-up with your primary care provider tomorrow regarding your ER visit. Please return to the emergency department if you develop worsening of your pain, any new injuries, increased swelling, decreased range of motion or decreased sensation in your extremity. CHRYSTAL WAITE APRN May 14, 2021 14:36 VICKY FALK DO May 15, 2021 07:16
--- NOTE | 2021-05-14 14:52 | RAD ---
EXAM: Left shoulder, 3 views. HISTORY: Pain. COMPARISON: None. FINDINGS: 3 views of the left shoulder obtained. There is no acute fracture, dislocation or subluxati on. IMPRESSION: No acute osseous finding. Electronically signed by: Padmini Barreto MD (05/14/2021 2:49 PM) [id number]
[2021-05-14] MEDS ORDERED: HYDROcodone/APAP 5/325MG 1 TAB TABLET PO ONE (15:15)
[2021-05-14 15:42] VITALS: BP 131/62
== END 2021-05-14 15:45 | disposition home or self-care (01) ==
LOC: ER 12:58
DX: S46.912A Strain of unspecified muscle, fascia and tendon at shoulder and upper arm level, left arm, initial encounter (principal); Z88.0 Allergy status to penicillin; F17.200 Nicotine dependence, unspecified, uncomplicated; F43.10 Post-traumatic stress disorder, unspecified; W18.39XA Other fall on same level, initial encounter; Y93.K1 Activity, walking an animal; Y92.89 Other specified places as the place of occurrence of the external cause; Y99.8 Other external cause status
CPT/HCPCS: 73030; 99283; A4565

== ENCOUNTER 2021-08-27 19:19 | Inpatient (IN) | payer BC ==
[~2021-08-27] VITALS: Ht 160 cm; Wt 94.4 kg
[2021-08-27 20:07] LABS: BASO # 0.1 x10^3/uL (0.0-0.2); BASO % 1 % (0-3); EOS # 0.1 x10^3/uL (0.0-0.7); EOS % 1 % (0-3); HEMATOCRIT 42.8 % (36.0-47.0); HEMOGLOBIN 14.4 g/dL (12.0-15.5); LYMPH # 4.6 x10^3/uL (1.0-4.8); LYMPH % 42 % (24-48); MEAN CORPUSCULAR HEMOGLOBIN 29 pg (25-35); MEAN CORPUSCULAR HGB CONC 34 g/dL (31-37); MEAN CORPUSCULAR VOLUME 86 fL (79-100); MONO # 0.6 x10^3/uL (0.0-1.1); MONO % 5 % (0-9); NEUT # 5.6 x10^3/uL (1.8-7.7); NEUT % 51 % (31-73); PLATELET COUNT 346 x10^3/uL (140-400); RED BLOOD COUNT 4.96 x10^6/uL (3.50-5.40); RED CELL DISTRIBUTION WIDTH 14.1 % (11.5-14.5)
[2021-08-27 20:16] LABS: CALCIUM 8.9 mg/dL (8.5-10.1); CREATININE 0.6 mg/dL (0.6-1.0); POTASSIUM 3.5 mmol/L (3.5-5.1); PROTHROMBIN TIME PATIENT 13.2 SEC (11.7-14.0)
[2021-08-27 20:22] LABS: TOTAL BILIRUBIN 0.4 mg/dL (0.2-1.0); TOTAL PROTEIN 8.1 g/dL (6.4-8.2)
[2021-08-27] MEDS ORDERED: IOHEXOL 350 MG/ML 100 ML VIAL. IV ONE (20:30)
--- NOTE | 2021-08-27 20:58 | RAD ---
Exam: CT head INDICATION: Stroke like symptoms TECHNIQUE: Sequential axial images through the head were obtained without the administration of IV co ntrast. Exposure: One or more of the following in the visualized dose reduction techniques were utilized for this examination: 1. Automated exposure control 2. Adjustment of the MA and/or KV according to patient size 3. Use of iterative of reconstructive technique Comparisons: None FINDINGS: No focal parenchymal lesion or hemorrhage is identified. There is no midline shift or sulcal effaceme nt. Mild patchy hypodensity in the periventricular white matter. No acute vascular territory infarction i s identified. De Souza-white distinction is preserved. The ventricular system is within normal limits without compression hydrocephalus. The basal cisterns are well maintained. The visualized portions of the paranasal sinuses and mastoid air cells are well-pneumatized. No acute fractures. IMPRESSION: Mild small vessel ischemic change, technically age indeterminate without recent prior imaging. Electronically signed by: Genevieve Moore MD (08/27/2021 8:56 PM) [facility] UCLAXIANG
--- NOTE | 2021-08-27 21:09 | RAD ---
PQRS Compliance Statement: One or more of the following individualized dose reduction techniques were utilized for this examinat ion: 1. Automated exposure control 2. Adjustment of the mA and/or kV according to patient size 3. Use of iterative reconstruction technique CTA HEAD AND NECK W/WO CONTRAST Clinical Indication: Reason: strokelike sx; left-sided weakness and numbness x3 days Comparison: CT head without contrast, earlier same day. Technique: Helical CT imaging from inferior to the aortic arch to the skull vertex is performed after 75 cc of Omnipaque [address] angiogram protocol. 3-D MIP reconstructions of the cervi marilyn carotid arteries and [place] are performed. PQRS Compliance Statement - Stenosis calculations for CT, MR and conventional angiography are based u precious measurement of the distal ICA diameter in accordance with the NASCET methodology. Stenosis calcu lations for carotid ultrasound studies are derived from validated velocity criteria which are known t o correlate with the NASCET methodology. Findings: The common carotid arteries, carotid bifurcations, and the cervical internal carotid arteries are pat ent. The cervical vertebral arteries are patent. The left vertebral artery is dominant. The posterior circulation is intact. There is persistent origin of the posterior cerebral arteries. There ar e duplicated left posterior cerebral arteries. The distal internal carotid arteries are patent. Anter ior circulation is intact. No intracranial aneurysm or significant arterial stenosis is identified. The dural venous sinuses are unremarkable. There is no abnormal enhancement in the brain parenchyma. There is no cervical adenopathy. The upper lungs are clear. Straightening of normal cervical lordosis may be positional or due to muscle spasm. There are degenerative changes of the cervical spine. Chary ent is edentulous. IMPRESSION: 1. There is no large vessel occlusion. 2. There is no significant stenosis of the cervical carotid or vertebral arteries. Electronically signed by: Pascual Farrell MD (08/27/2021 9:06 PM) [facility]
--- NOTE | 2021-08-27 21:10 | RAD ---
XR CHEST 1V Clinical Indication: Reason: strokelike sx / Spl. Instructions: / History: Comparison: None. Findings: The cardiomediastinal silhouette is normal. Lungs are clear. There is no pneumothorax. No pleural eff usion is appreciated. No acute bone abnormality. IMPRESSION: No acute cardiopulmonary process. Electronically signed by: Pascual Farrell MD (08/27/2021 9:07 PM) [facility]
[2021-08-27 21:16] LABS: AMPHETAMINE/METHAMPHETAMINE NEG (NEG); BARBITURATES NEG (NEG); BENZODIAZEPINES NEG (NEG); CANNABINOIDS POS (NEG); COCAINE NEG (NEG); METHADONE NEG (NEG); OPIATES NEG (NEG); PHENCYCLIDINE NEG (NEG)
--- NOTE | 2021-08-27 21:24 | PHYS DOC ---
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 She is a smoker. She tells me she is otherwise without chronic medical problems. Ms. Rendon presents for evaluation of left-sided numbness and weakness with onset about 2 weeks ago, and worsening about 3 days ago. Patient states that beginning about 2 weeks ago her left hand became numb and difficult to move. She holds the affected hand with finger joints somewhat flexed. She states "it feels like a claw and not like my hand." She denies any injury to the hand in question. About 3 days ago patient also noticed left-sided numbness and weakness. States the left side of her face, her left arm and her left leg do not feel right. States they are weak. When asked why she did not seek care until now she states "I don't like hospitals." Patient reports an associated headache for the last 3 days, gradual in onset and localizing to the occiput. States the same headache has been intermittent over the last 1 month. Associated nausea with a number of episodes of nonbloody vomiting yesterday. She denies fevers, neck pain/stiffness/meningismus, vision changes, upper respiratory congestion/rhinorrhea, cough, sore throat, shortness of breath or chest pain of any kind, abdominal pain of any kind, flank pain, midline back pain, dysuria, hematuria, polyuria or oliguria, changes in bowel habits, pain or swelling to arms or legs. Patient drove here in her private vehicle and ambulated into the waiting room without difficulty. She was brought back to an ED bed by wheelchair but ambulated with a steady, narrow gait to her ED bed from the wheelchair. She see ms to have a distractible facial droop which switches sides. She seems to have somewhat distractible weakness. She would not move her left leg at all for the nurse but for me she has 5 out of 5 strength at all joints there. She ambulated and as above. She has a very inconsistent stroke evaluation. Vital signs are appropriate here and the patient is in no acute distress. Review of Systems Review of Systems A 12 point review of systems was completed and was negative except where noted in HPI above. Current Medications Current Medications Current Medications Medications (Trade) Dose Ordered Sig/Lenny Start Time Stop Time Status Last Admin Dose Admin Acetaminophen (Tylenol) 650 mg PRN Q4HRS PRN 08/27/21 21:30 08/28/21 21:29 Diphenhydramine HCl (Benadryl) 25 mg 1X ONCE 08/27/21 21:30 08/27/21 21:31 DC 08/27/21 22:05 25 MG Iohexol (Omnipaque 350 Mg/ml) 75 ml 1X ONCE 08/27/21 20:30 08/27/21 20:31 DC 08/27/21 20:38 75 ML Ondansetron HCl (Zofran) 4 mg PRN Q8HRS PRN 08/27/21 21:30 08/28/21 21:29 08/27/21 22:05 4 MG Multivit/ Folic Acid/Iron (Multivitamin ) 1 tab 1X STAT 08/27/21 21:25 08/27/21 21:30 DC 08/27/21 22:05 1 TAB Prochlorperazine Edisylate (Compazine) 10 mg 1X ONCE 08/27/21 21:30 08/27/21 21:31 DC 08/27/21 22:05 10 MG Sodium Chloride 1,000 ml @ 1,000 mls/hr 1X ONCE 08/27/21 21:30 08/27/21 22:29 DC 08/27/21 22:06 1,000 MLS/HR Thiamine HCl 500 mg/Dextrose 55 ml @ 102 mls/hr ONCE STAT 08/27/21 21:29 08/27/21 22:01 DC 08/27/21 22:06 102 MLS/HR Allergies Allergies Allergies Coded Allergies Type Severity Reaction Last Updated Verified Penicillins Allergy Intermediate ITCH 08/27/21 Yes Physical Exam Physical Exam 56-year-old female appearing nontoxic and in no acute distress. Head is normocephalic and atraumatic. Neck is supple and nontender. Oropharynx is moist. Lungs are clear to auscultation at all stations. There is normal S1 and S2 without rubs or gallops and capillary refill is appropriate, less than 2 seconds globally. Abdomen is soft, nontender and nondistended. Skin is warm and dry without cyanosis, clubbing or edema. Psychiatrically, the patient demonstrates appropriate mood and affect and is alert. Evaluation of the extremities reveals BUEs and BLEs neurovascularly intact distally with strength 5-5, sensation intact light touch in all nerve distributions, radial, DP and PT pulses 2+ and equal bilaterally, capillary refill less than 2 seconds, hands and feet warm and well-perfused. No dependent peripheral edema distally. No calf tenderness or swelling bilaterally. Homans test is negative bilaterally. Neurologically, patient has somewhat inconsistent left-sided numbness and weakness. She has a questionable forehead sparing facial droop that appears to switch sides when she is distracted. She has some inconsistent minimal arm and leg weakness on the left and tells me that she cannot feel me touch the left side of her face, but then says she can when I ask again. Tells me that sensation does not feel normal on the left arm or leg either but that she can feel me touch. Otherwise nonfocal neurologic exam. NIHSS 5 Current Patient Data Vital Signs Vital Signs Date Time Temp Pulse Resp B/P (MAP) Pulse Ox O2 Delivery O2 Flow Rate FiO2 08/27/21 19:23 98.1 16 138/73 (94) 97 98.1 Lab Values Laboratory Tests Test 08/27/21 20:00 08/27/21 21:00 White Blood Count 11.0 x10^3/uL (4.0-11.0) Red Blood Count 4.96 x10^6/uL (3.50-5.40) Hemoglobin 14.4 g/dL (12.0-15.5) Hematocrit 42.8 % (36.0-47.0) Mean Corpuscular Volume 86 fL (79-100) Mean Corpuscular Hemoglobin 29 pg (25-35) Mean Corpuscular Hemoglobin Concent 34 g/dL (31-37) Red Cell Distribution Width 14.1 % (11.5-14.5) Platelet Count 346 x10^3/uL (140-400) Neutrophils (%) (Auto) 51 % (31-73) Lymphocytes (%) (Auto) 42 % (24-48) Monocytes (%) (Auto) 5 % (0-9) Eosinophils (%) (Auto) 1 % (0-3) Basophils (%) (Auto) 1 % (0-3) Neutrophils # (Auto) 5.6 x10^3/uL (1.8-7.7) Lymphocytes # (Auto) 4.6 x10^3/uL (1.0-4.8) Monocytes # (Auto) 0.6 x10^3/uL (0.0-1.1) Eosinophils # (Auto) 0.1 x10^3/uL (0.0-0.7) Basophils # (Auto) 0.1 x10^3/uL (0.0-0.2) Prothrombin Time 13.2 SEC (11.7-14.0) Prothrombin Time INR 1.0 (0.8-1.1) Activated Partial Thromboplast Time 29 SEC (24-38) Sodium Level 144 mmol/L (136-145) Potassium Level 3.5 mmol/L (3.5-5.1) Chloride Level 103 mmol/L (98-107) Carbon Dioxide Level 25 mmol/L (21-32) Anion Gap 16 (6-14) H Blood Urea Nitrogen 15 mg/dL (7-20) Creatinine 0.6 mg/dL (0.6-1.0) Estimated GFR (Cockcroft-Gault) 103.0 BUN/Creatinine Ratio 25 (6-20) H Glucose Level 91 mg/dL (70-99) Calcium Level 8.9 mg/dL (8.5-10.1) Total Bilirubin 0.4 mg/dL (0.2-1.0) Aspartate Amino Transferase (AST) 39 U/L (15-37) H Alanine Aminotransferase (ALT) 47 U/L (14-59) Alkaline Phosphatase 106 U/L (46-116) Troponin I High Sensitivity 7 ng/L (4-50) Total Protein 8.1 g/dL (6.4-8.2) Albumin 4.0 g/dL (3.4-5.0) Albumin/Globulin Ratio 1.0 (1.0-1.7) Ethyl Alcohol Level 266 mg/dL (0-10) H Urine Opiates Screen Neg (NEG) Urine Methadone Screen Neg (NEG) Urine Barbiturates Neg (NEG) Urine Phencyclidine Screen Neg (NEG) Urine Amphetamine/Methamphetamine Neg (NEG) Urine Benzodiazepines Screen Neg (NEG) Urine Cocaine Screen Neg (NEG) Urine Cannabinoids Screen Pos (NEG) Urine Ethyl Alcohol Pos (NEG) Laboratory Tests 08/27/21 20:00 Laboratory Tests 08/27/21 20:00 EKG EKG Sinus rhythm, rate 66, no acute ST elevation or depression, NV 170, QRS 84, QTc 451, EP interpretation. Nonischemic tracing, intervals appropriate. Radiology/Procedures Radiology/Procedures CTA HEAD AND NECK W/WO CONTRAST Clinical Indication: Reason: strokelike sx; left-sided weakness and numbness x3 days Comparison: CT head without contrast, earlier same day. Technique: Helical CT imaging from inferior to the aortic arch to the skull vertex is performed after 75 cc of Omnipaque [address] angiogram protocol. 3-D MIP reconstructions of the cervical carotid arteries and tetlin of [place] are performed. RS Compliance Statement - Stenosis calculations for CT, MR and conventional angiography are based upon measurement of the distal ICA diameter in accordance with the NASCET methodology. Stenosis calculations for carotid ultrasound studies are derived from validated velocity criteria which are known to correlate with the NASCET methodology. Findings: The common carotid arteries, carotid bifurcations, and the cervical internal carotid arteries are patent. The cervical vertebral arteries are patent. The left vertebral artery is dominant. The posterior circulation is intact. There is persistent origin of the posterior cerebral arteries. There are duplicated left posterior cerebral arteries. The distal internal carotid arteries are pat ent. Anterior circulation is intact. No intracranial aneurysm or significant arterial stenosis is identified. The dural venous sinuses are unremarkable. There is no abnormal enhancement in the brain parenchyma. There is no cervical adenopathy. The upper lungs are clear. Straightening of normal cervical lordosis may be positional or due to muscle spasm. There are degenerative changes of the cervical spine. Patient is edentulous. IMPRESSION: 1. There is no large vessel occlusion. 2. There is no significant stenosis of the cervical carotid or vertebral arteries. Electronically signed by: Pascual Farrell MD (08/27/2021 9:06 PM) [facility] DICTATED and SIGNED BY: PASCUAL FARRELL MD DATE: 08/27/212058 []Comparisons: None FINDINGS: No focal parenchymal lesion or hemorrhage is identified. There is no midline shift or sulcal effacement. Mild patchy hypodensity in the periventricular white matter. No acute vascular territory infarction is identified. De Souza-white distinction is preserved. The ventricular system is within normal limits without compression hydrocephalus. The basal cisterns are well maintained. The visualized portions of the paranasal sinuses and mastoid air cells are well- pneumatized. No acute fractures. IMPRESSION: Mild small vessel ischemic change, technically age indeterminate without recent prior imaging. Electronically signed by: Genevieve Santos MD (08/27/2021 8:56 PM) [facility] DI[facility]ATED and SIGNED BY: GENEVIEVE SANTOS MD DATE: 08/27/212048 XR CHEST 1V Clinical Indication: Reason: strokelike sx / Spl. Instructions: / History: Comparison: None. Findings: The cardiomediastinal silhouette is normal. Lungs are clear. There is no pneumothorax. No pleural effusion is appreciated. No acute bone abnormality. IMPRESSION: No acute cardiopulmonary process. Electronically signed by: Pascual Farrell MD (08/27/2021 9:07 PM) [facility] DICTATED and SIGNED BY: PASCUAL FARRELL MD DATE: 08/27/212105 Course & Med Decision Making Course & Med Decision Making Labs unremarkable aside from evidence of alcohol intoxication. Urine tox screen is still pending. CT head and CT angiography of the head and neck and chest x- ray are unremarkable for evidence of acute process. Were the patient's symptoms to reflect an acute ischemic stroke, she would be far outside of any window for intervention with alteplase. There is no evidence of an LVO. Will admit for probable MRI brain, neurology consultation and further care. I will give a dose of thiamine, a multivitamin, some medication for headache and some IV fluids as per flowsheet. Ms. Rendon is graciously accepted for admission by Dr. Krishnamurthy. Oziel Disclaimer Oziel Disclaimer This electronic medical record was generated, in whole or in part, using a voice recognition dictation system. Departure Departure Impression: Primary Impression: Left-sided weakness Additional Impressions: Left sided numbness Alcohol intoxication Disposition: ADMITTED INPATIENT Condition: STABLE Referrals: NO PCP (PCP) Problem Qualifiers Additional Impressions: Alcohol intoxication Complication of substance-induced condition: uncomplicated Qualified Codes: F10.920 - Alcohol use, unspecified with intoxication, uncomplicated KRISHNA DIAZ MD Aug 27, 2021 21:24
[2021-08-27] MEDS ORDERED: PRENATAL MULTIVITAMIN TABLET. PO STA (21:25)
[2021-08-27] MEDS ORDERED: THIAMINE INJ 500 MG in IV DEXTROSE 5% 50 ML IV STA (21:29)
[2021-08-27] MEDS ORDERED: IV NORMAL SALINE 1000ML BAG 1,000 ML IV ONE (21:30)
[2021-08-27] MEDS ORDERED: ACETAMINOPHEN 325 MG TABLET. PO PRN (21:30)
[2021-08-27] MEDS ORDERED: diphenhydrAMINE 50 MG/ML VIAL IVP ONE (21:30)
[2021-08-27] MEDS ORDERED: PROCHLORPERAZINE 10 MG/2 ML VIAL. IV ONE (21:30)
[2021-08-27] MEDS ORDERED: ONDANSETRON PF 4 MG/2 ML VIAL. IVP PRN (21:30)
[2021-08-27] MEDS ORDERED: ASPIRIN CHEWABLE 81 MG TABLET. PO ONE (23:30)
--- NOTE | 2021-08-27 23:57 | NUR ---
The patient, LUCIO ROSSI, 56 y/o, F admitted by CLEMENTINA FLOREZ MD, was given written information regarding hospital policies, unit procedures and contact persons. Valuables were checked and documented. Pt ambulated to bed w/o difficulty. Pt alert and oriented x4, c/o slight headache, will medicate. Pt oriented to unit and staff, will cont to monitor pt status and safety. pmrn
[2021-08-28 00:10] VITALS: BP 144/75
[2021-08-28 03:00] VITALS: BP 133/71
[2021-08-28] MEDS ORDERED: HYDR50CA PO (05:32)
[2021-08-28] MEDS ORDERED: DOXE150C2 PO (05:32)
[2021-08-28] MEDS ORDERED: QUET200T4 PO (05:32)
[2021-08-28] MEDS ORDERED: BUSPAR (05:32)
[2021-08-28 05:55] LABS: BASO # 0.1 x10^3/uL (0.0-0.2); BASO % 1 % (0-3); EOS # 0.1 x10^3/uL (0.0-0.7); EOS % 2 % (0-3); HEMOGLOBIN 13.7 g/dL (12.0-15.5); LYMPH # 3.8 x10^3/uL (1.0-4.8); LYMPH % 41 % (24-48); MEAN CORPUSCULAR HEMOGLOBIN 29 pg (25-35); MEAN CORPUSCULAR HGB CONC 33 g/dL (31-37); MEAN CORPUSCULAR VOLUME 87 fL (79-100); MONO # 0.6 x10^3/uL (0.0-1.1); MONO % 7 % (0-9); NEUT # 4.7 x10^3/uL (1.8-7.7); NEUT % 51 % (31-73); PLATELET COUNT 317 x10^3/uL (140-400); RED CELL DISTRIBUTION WIDTH 14.1 % (11.5-14.5); WHITE BLOOD COUNT 9.3 x10^3/uL (4.0-11.0)
[2021-08-28 06:07] LABS: CALCIUM 8.8 mg/dL (8.5-10.1); CREATININE 0.6 mg/dL (0.6-1.0); POTASSIUM 3.3 mmol/L (3.5-5.1)
[2021-08-28 07:00] VITALS: BP 151/88
--- NOTE | 2021-08-28 08:40 | EKG ---
[facility] [address] [place] [address] Test Date: 2021-08-27 Test Time: 19:28:36 Pat Name: LUCIO ROSSI Department: Room: [facility] Gender: F Architectural Drafter: : 1965 Requested By: KRISHNA DIAZ Order Number: [id number] Reading MD: Gunner Andersen Measurements Intervals [place] Rate: 66 P: 50 ME: 170 QRS: 15 QRSD: 84 T: 44 QT: 428 QTc: 451 Interpretive Statements SINUS RHYTHM NORMAL ECG RI6.02 No previous ECG available for comparison Electronically Signed On 08-29-2021 13:23:15 CDT by Gunner Andersen
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
[2021-08-28] MEDS ORDERED: LORazepam 0.5 MG TABLET PO PRN (08:45)
[2021-08-28] MEDS ORDERED: DEXTROSE 50% 25 GM / 50ML DISP.SYRIN. IV PRN (08:45)
[2021-08-28] MEDS ORDERED: ZOLPIDEM 5 MG TABLET. PO PRN (08:45)
[2021-08-28] MEDS ORDERED: DOCUSATE SODIUM 100 MG CAPSULE. PO PRN (08:45)
[2021-08-28] MEDS ORDERED: ONDANSETRON PF 4 MG/2 ML VIAL. IVP PRN (08:45)
[2021-08-28] MEDS ORDERED: POTASSIUM CHLORIDE 20 MEQ TABLET.ER. PO ONE (08:45)
[2021-08-28] MEDS ORDERED: ACETAMINOPHEN 325 MG TABLET. PO PRN (08:45)
[2021-08-28] MEDS ORDERED: diphenhydrAMINE HCL 25 MG CAPSULE PO PRN ×2 (08:45)
[2021-08-28] MEDS ORDERED: diphenhydrAMINE 50 MG/ML VIAL IVP PRN (08:45)
[2021-08-28] MEDS ORDERED: SENNOSIDES 8.6 MG TABLET PO PRN (08:45)
[2021-08-28] MEDS ORDERED: PROCHLORPERAZINE 10 MG/2 ML VIAL. IV PRN (08:45)
[2021-08-28] MEDS ORDERED: ASPIRIN ENTERIC COATED 81 MG TABLET.DR. PO SCH (09:00)
[2021-08-28] MEDS ORDERED: ENOXAPARIN 40 MG/0.4 ML SYRINGE. SQ SCH (09:00)
[2021-08-28 11:00] VITALS: BP 167/83
--- NOTE | 2021-08-28 13:14 | NUR ---
SS following for discharge planning. SS reviewed pt chart and discussed with pt RN. Pt is from home and is currently on room air. Neurology consulted. Discharge plan is currently to home when medically ready for discharge. SS will continue to follow for discharge planning.
--- NOTE | 2021-08-28 14:26 | PDOC2 ---
NEUROLOGY CONSULT Date of Service DOS: DATE: 08/28/21 TIME: 14:20 Reason for Consult Reason for Consult: Left-sided weakness Referring Physician Referring Physician: Dr. 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 She says that 2 weeks ago she had a spell of left hand cramping pain and numbness after cutting a lot of food up. She says that 3 days ago she developed similar symptoms after working in the kitchen with cramping and fisting of the left arm and hand. Her hand feels fine now. In the emergency department she had a distractible facial droop which switched sides and distractible weakness. This patient has a history of schizophrenia, bipolar disorder, post traumatic stress disorder. She tells me that she has had left-sided sciatica in the past as well as cervical disc disease. Past Medical History Psych: Anxiety, Bipolar, Schizophrenia, Other (PTSD) Musculoskeletal: low back pain (Left-sided sciatica, also neck pain) Past Surgical History Past Surgical History: Family History Family History: No pertinent hx Social History Social History Occasional tobacco, occasional marijuana, works as a cook Current Medications Current Medications Current Medications Iohexol (Omnipaque 350 Mg/ml) 75 ml 1X ONCE IV Last administered on 08/27/21at 20:38; Start 08/27/21 at 20:30; Stop 08/27/21 at 20:31; Status DC Sodium Chloride 1,000 ml @ 1,000 mls/hr 1X ONCE IV Last administered on 08/27/21at 22:06; Start 08/27/21 at 21:30; Stop 08/27/21 at 22:29; Status DC Prochlorperazine Edisylate (Compazine) 10 mg 1X ONCE IV Last administered on 08/27/21at 22:05; Start 08/27/21 at 21:30; Stop 08/27/21 at 21:31; Status DC Diphenhydramine HCl (Benadryl) 25 mg 1X ONCE IVP Last administered on 08/27/21at 22:05; Start 08/27/21 at 21:30; Stop 08/27/21 at 21:31; Status DC Thiamine HCl 500 mg/Dextrose 55 ml @ 102 mls/hr ONCE STAT IV Last administered on 08/27/21at 22:06; Start 08/27/21 at 21:29; Stop 08/27/21 at 22:01; Status DC Multivit/ Folic Acid/Iron (Multivitamin ) 1 tab 1X STAT PO Last administered on 08/27/21at 22:05; Start 08/27/21 at 21:25; Stop 08/27/21 at 21:30; Status DC Ondansetron HCl (Zofran) 4 mg PRN Q8HRS PRN IVP NAUSEA/VOMITING Last administered on 08/27/21at 22:05; Start 08/27/21 at 21:30; Stop 08/28/21 at 21:29 Acetaminophen (Tylenol) 650 mg PRN Q4HRS PRN PO FEVER > 100.3'F Last administered on 08/28/21at 00:45; Start 08/27/21 at 21:30; Stop 08/28/21 at 21:29 Aspirin (Aspirin Chewable) 324 mg 1X ONCE PO Last administered on 08/28/21at 00:42; Start 08/27/21 at 23:30; Stop 08/27/21 at 23:31; Status DC Potassium Chloride (Klor-Con) 40 meq 1X ONCE PO Last administered on 08/28/21at 10:29; Start 08/28/21 at 08:45; Stop 08/28/21 at 08:47; Status DC Sennosides (Senna) 17.2 mg PRN BID PRN PO CONSTIPATION; Start 08/28/21 at 08:45 Docusate Sodium (Colace) 100 mg PRN DAILY PRN PO HARD STOOLS; Start 08/28/21 at 08:45 Ondansetron HCl (Zofran) 4 mg PRN Q6HRS PRN IVP NAUSEA/VOMITING, 1st CHOICE; Start 08/28/21 at 08:45 Aspirin (Ecotrin) 81 mg DAILYWBKFT PO Last administered on 08/28/21at 10:28; Start 08/28/21 at 09:00 Dextrose (Dextrose 50%-Water Syringe) 12.5 gm PRN Q15MIN PRN IV SEE COMMENTS; Start 08/28/21 at 08:45 Acetaminophen (Tylenol) 650 mg PRN Q4HRS PRN PO TEMP OVER 100.4F OR MILD PAIN; Start 08/28/21 at 08:45 Lorazepam (Ativan) 0.5 mg PRN Q6HRS PRN PO ANXIETY / AGITATION; Start 08/28/21 at 08:45 Lorazepam (Ativan Inj) 0.25 mg PRN Q4HRS PRN IV ANXIETY / AGITATION; Start 08/28/21 at 08:45 Enoxaparin Sodium (Lovenox 40mg Syringe) 40 mg Q24H SQ Last administered on 08/28/21at 10:28; Start 08/28/21 at 09:00 Prochlorperazine Edisylate (Compazine) 10 mg PRN Q6HRS PRN IV NAUSEA/VOMITING, 2nd CHOICE; Start 08/28/21 at 08:45 Diphenhydramine HCl (Benadryl) 25 mg PRN Q6HRS PRN IVP ITCHING; Start 08/28/21 at 08:45 Diphenhydramine HCl (Benadryl) 25 mg PRN Q6HRS PRN PO ITCHING; Start 08/28/21 at 08:45 Diphenhydramine HCl (Benadryl) 25 mg PRN QHS PRN PO INSOMNIA, 1st CHOICE; Start 08/28/21 at 08:45 Zolpidem Tartrate (Ambien) 2.5 mg PRN QHS PRN PO INSOMNIA, 2nd CHOICE; Start 08/28/21 at 08:45 Atorvastatin Calcium (Lipitor) 40 mg QHS PO ; Start 08/28/21 at 21:00 Active Scripts Active Reported [Buspar] TID Vistaril (Hydroxyzine Pamoate) 50 Mg Capsule 75 Mg PO TID Doxepin Hcl 150 Mg Capsule 1 Cap PO QHS 30 Days Seroquel (Quetiapine Fumarate) 200 Mg Tablet 200 Mg PO HS Allergies Allergies: Coded Allergies: Penicillins (Verified Allergy, Intermediate, ITCH, 08/27/21) ROS Review of System Negative for fever, chills, weight loss, shortness of breath, chest pain, indigestion, hematochezia, melena, and dysuria. Full 14-point review of systems is negative. Physical Exam Physical Examination General: Well-developed, well-nourished black female in no acute distress HEENT: Normocephalic andatraumatic. Temporal arteriespulsatile and nontender. Neck: Supple without bruit, no meningismus Musculoskeletal: Stability:see neurologic. Gait exam:see neurologic. Tone:see neurologic.Strength:see neurologic. Neurological: Mental Status:intact, orientation, memory, attention span/concentration, language, fund of knowledge normal. Cranial Nerves:Pupils equal and reactive to light, extraocular movements areintact, visual alvarez are full to confrontation. Facial sensation is normal. There is no facial asymmetry. Vestibulo-ocular reflex is intact. Palate elevates and tongue protrudes in midline. All other cranial related problems are negative except as mentioned before.Reflexes:2+ and symmetric with flexor plantar responses. Motor:5/5 strength with normal tone and bulk. Coordination:Finger-nose finger and [id number] testing are normal. Rapid alternating movements and fine finger movements are intact. Gait:Normal, including tandem. Sensory:Normal pinprick, vibration, light touch, proprioception. Vitals VITALS Vital Signs Date Time Temp Pulse Resp B/P (MAP) Pulse Ox O2 Delivery O2 Flow Rate FiO2 08/28/21 13:52 Room Air 08/28/21 11:00 98.3 82 18 167/83 (111) 94 98.3 Labs Labs Laboratory Tests Test 08/27/21 20:00 08/27/21 21:00 08/28/21 04:35 White Blood Count 11.0 x10^3/uL (4.0-11.0) 9.3 x10^3/uL (4.0-11.0) Red Blood Count 4.96 x10^6/uL (3.50-5.40) 4.70 x10^6/uL (3.50-5.40) Hemoglobin 14.4 g/dL (12.0-15.5) 13.7 g/dL (12.0-15.5) Hematocrit 42.8 % (36.0-47.0) 41.0 % (36.0-47.0) Mean Corpuscular Volume 86 fL (79-100) 87 fL (79-100) Mean Corpuscular Hemoglobin 29 pg (25-35) 29 pg (25-35) Mean Corpuscular Hemoglobin Concent 34 g/dL (31-37) 33 g/dL (31-37) Red Cell Distribution Width 14.1 % (11.5-14.5) 14.1 % (11.5-14.5) Platelet Count 346 x10^3/uL (140-400) 317 x10^3/uL (140-400) Neutrophils (%) (Auto) 51 % (31-73) 51 % (31-73) Lymphocytes (%) (Auto) 42 % (24-48) 41 % (24-48) Monocytes (%) (Auto) 5 % (0-9) 7 % (0-9) Eosinophils (%) (Auto) 1 % (0-3) 2 % (0-3) Basophils (%) (Auto) 1 % (0-3) 1 % (0-3) Neutrophils # (Auto) 5.6 x10^3/uL (1.8-7.7) 4.7 x10^3/uL (1.8-7.7) Lymphocytes # (Auto) 4.6 x10^3/uL (1.0-4.8) 3.8 x10^3/uL (1.0-4.8) Monocytes # (Auto) 0.6 x10^3/uL (0.0-1.1) 0.6 x10^3/uL (0.0-1.1) Eosinophils # (Auto) 0.1 x10^3/uL (0.0-0.7) 0.1 x10^3/uL (0.0-0.7) Basophils # (Auto) 0.1 x10^3/uL (0.0-0.2) 0.1 x10^3/uL (0.0-0.2) Prothrombin Time 13.2 SEC (11.7-14.0) Prothromb Time International Ratio 1.0 (0.8-1.1) Activated Partial Thromboplast Time 29 SEC (24-38) Sodium Level 144 mmol/L (136-145) 140 mmol/L (136-145) Potassium Level 3.5 mmol/L (3.5-5.1) 3.3 mmol/L (3.5-5.1) Chloride Level 103 mmol/L (98-107) 102 mmol/L (98-107) Carbon Dioxide Level 25 mmol/L (21-32) 24 mmol/L (21-32) Anion Gap 16 (6-14) 14 (6-14) Blood Urea Nitrogen 15 mg/dL (7-20) 12 mg/dL (7-20) Creatinine 0.6 mg/dL (0.6-1.0) 0.6 mg/dL (0.6-1.0) Estimated GFR (Cockcroft-Gault) 103.0 103.0 BUN/Creatinine Ratio 25 (6-20) Glucose Level 91 mg/dL (70-99) 73 mg/dL (70-99) Calcium Level 8.9 mg/dL (8.5-10.1) 8.8 mg/dL (8.5-10.1) Total Bilirubin 0.4 mg/dL (0.2-1.0) Aspartate Amino Transf (AST/SGOT) 39 U/L (15-37) Alanine Aminotransferase (ALT/SGPT) 47 U/L (14-59) Alkaline Phosphatase 106 U/L (46-116) Troponin I High Sensitivity 7 ng/L (4-50) Total Protein 8.1 g/dL (6.4-8.2) Albumin 4.0 g/dL (3.4-5.0) Albumin/Globulin Ratio 1.0 (1.0-1.7) Ethyl Alcohol Level 266 mg/dL (0-10) Urine Opiates Screen Neg (NEG) Urine Methadone Screen Neg (NEG) Urine Barbiturates Neg (NEG) Urine Phencyclidine Screen Neg (NEG) Urine Amphetamine/Methamphetamine Neg (NEG) Urine Benzodiazepines Screen Neg (NEG) Urine Cocaine Screen Neg (NEG) Urine Cannabinoids Screen Pos (NEG) Urine Ethyl Alcohol Pos (NEG) Triglycerides Level 252 mg/dL (0-150) Cholesterol Level 244 mg/dL (0-200) LDL Cholesterol, Calculated 133 mg/dL (0-100) VLDL Cholesterol, Calculated 50 mg/dL (0-40) Non-HDL Cholesterol Calculated 183 mg/dL (0-129) HDL Cholesterol 61 mg/dL (40-60) Cholesterol/HDL Ratio 4.0 Laboratory Tests Test 08/27/21 20:00 08/27/21 21:00 08/28/21 04:35 White Blood Count 11.0 x10^3/uL (4.0-11.0) 9.3 x10^3/uL (4.0-11.0) Red Blood Count 4.96 x10^6/uL (3.50-5.40) 4.70 x10^6/uL (3.50-5.40) Hemoglobin 14.4 g/dL (12.0-15.5) 13.7 g/dL (12.0-15.5) Hematocrit 42.8 % (36.0-47.0) 41.0 % (36.0-47.0) Mean Corpuscular Volume 86 fL (79-100) 87 fL (79-100) Mean Corpuscular Hemoglobin 29 pg (25-35) 29 pg (25-35) Mean Corpuscular Hemoglobin Concent 34 g/dL (31-37) 33 g/dL (31-37) Red Cell Distribution Width 14.1 % (11.5-14.5) 14.1 % (11.5-14.5) Platelet Count 346 x10^3/uL (140-400) 317 x10^3/uL (140-400) Neutrophils (%) (Auto) 51 % (31-73) 51 % (31-73) Lymphocytes (%) (Auto) 42 % (24-48) 41 % (24-48) Monocytes (%) (Auto) 5 % (0-9) 7 % (0-9) Eosinophils (%) (Auto) 1 % (0-3) 2 % (0-3) Basophils (%) (Auto) 1 % (0-3) 1 % (0-3) Neutrophils # (Auto) 5.6 x10^3/uL (1.8-7.7) 4.7 x10^3/uL (1.8-7.7) Lymphocytes # (Auto) 4.6 x10^3/uL (1.0-4.8) 3.8 x10^3/uL (1.0-4.8) Monocytes # (Auto) 0.6 x10^3/uL (0.0-1.1) 0.6 x10^3/uL (0.0-1.1) Eosinophils # (Auto) 0.1 x10^3/uL (0.0-0.7) 0.1 x10^3/uL (0.0-0.7) Basophils # (Auto) 0.1 x10^3/uL (0.0-0.2) 0.1 x10^3/uL (0.0-0.2) Prothrombin Time 13.2 SEC (11.7-14.0) Prothromb Time International Ratio 1.0 (0.8-1.1) Activated Partial Thromboplast Time 29 SEC (24-38) Sodium Level 144 mmol/L (136-145) 140 mmol/L (136-145) Potassium Level 3.5 mmol/L (3.5-5.1) 3.3 mmol/L (3.5-5.1) Chloride Level 103 mmol/L (98-107) 102 mmol/L (98-107) Carbon Dioxide Level 25 mmol/L (21-32) 24 mmol/L (21-32) Anion Gap 16 (6-14) 14 (6-14) Blood Urea Nitrogen 15 mg/dL (7-20) 12 mg/dL (7-20) Creatinine 0.6 mg/dL (0.6-1.0) 0.6 mg/dL (0.6-1.0) Estimated GFR (Cockcroft-Gault) 103.0 103.0 BUN/Creatinine Ratio 25 (6-20) Glucose Level 91 mg/dL (70-99) 73 mg/dL (70-99) Calcium Level 8.9 mg/dL (8.5-10.1) 8.8 mg/dL (8.5-10.1) Total Bilirubin 0.4 mg/dL (0.2-1.0) Aspartate Amino Transf (AST/SGOT) 39 U/L (15-37) Alanine Aminotransferase (ALT/SGPT) 47 U/L (14-59) Alkaline Phosphatase 106 U/L (46-116) Troponin I High Sensitivity 7 ng/L (4-50) Total Protein 8.1 g/dL (6.4-8.2) Albumin 4.0 g/dL (3.4-5.0) Albumin/Globulin Ratio 1.0 (1.0-1.7) Ethyl Alcohol Level 266 mg/dL (0-10) Urine Opiates Screen Neg (NEG) Urine Methadone Screen Neg (NEG) Urine Barbiturates Neg (NEG) Urine Phencyclidine Screen Neg (NEG) Urine Amphetamine/Methamphetamine Neg (NEG) Urine Benzodiazepines Screen Neg (NEG) Urine Cocaine Screen Neg (NEG) Urine Cannabinoids Screen Pos (NEG) Urine Ethyl Alcohol Pos (NEG) Triglycerides Level 252 mg/dL (0-150) Cholesterol Level 244 mg/dL (0-200) LDL Cholesterol, Calculated 133 mg/dL (0-100) VLDL Cholesterol, Calculated 50 mg/dL (0-40) Non-HDL Cholesterol Calculated 183 mg/dL (0-129) HDL Cholesterol 61 mg/dL (40-60) Cholesterol/HDL Ratio 4.[address] head INDICATION: Stroke like symptoms TECHNIQUE: Sequential axial images through the head were obtained without the administration of IV contrast. Exposure: One or more of the following in the visualized dose reduction techniques were utilized for this examination: 1. Automated exposure control 2. Adjustment of the MA and/or KV according to patient size 3. Use of iterative of reconstructive technique Comparisons: None FINDINGS: No focal parenchymal lesion or hemorrhage is identified. There is no midline sh ift or sulcal effacement. Mild patchy hypodensity in the periventricular white matter. No acute vascular territory infarction is identified. De Souza-white distinction is preserved. The ventricular system is within normal limits without compression hydroceph alus. The basal cisterns are well maintained. The visualized portions of the paranasal sinuses and mastoid air cells are well-pneumatized. No acute fractures. IMPRESSION: Mild small vessel ischemic change, technically age indeterminate without recent prior imaging. CTA HEAD AND NECK W/WO CONTRAST Clinical Indication: Reason: strokelike sx; left-sided weakness and numbness x3 days Comparison: CT head without contrast, earlier same day. Technique: Helical CT imaging from inferior to the aortic arch to the skull vertex is performed after 75 cc of Omnipaque [address] angiogram protocol. 3-D MIP reconstructions of the cervical carotid arteries and [place] are performed. PQRS Compliance Statement - Stenosis calculations for CT, MR and conventional angiography are based upon measurement of the distal ICA diameter in accordance with the NASCET methodology. Stenosis calculations for carotid ultrasound studies are derived from validated velocity criteria which are known to correlate with the NASCET methodology. Findings: The common carotid arteries, carotid bifurcations, and the cervical internal carotid arteries are patent. The cervical vertebral arteries are patent. The left vertebral artery is dominant. The posterior circulation is intact. There is persistent origin of the posterior cerebral arteries. There are duplicated left posterior cerebral arteries. The distal internal carotid arteries are patent. Anterior circulation is intact. No intracranial aneurysm or significant arterial stenosis is identified. The dural venous sinuses are unremarkable. There is no abnormal enhancement in the brain parenchyma. There is no cervical adenopathy. The upper lungs are clear. Straightening of normal cervical lordosis may be positional or due to muscle spasm. There are degenerative changes of the cervical spine. Patient is edentulous. IMPRESSION: 1. There is no large vessel occlusion. 2. There is no significant stenosis of the cervical carotid or vertebral arteries. Assessment/Plan Assessment/Plan Impression: Suspect peripheral neurological disorder such as left carpal or cubital tunnel syndrome, consider cervical radiculopathy but no evidence of cervical radiculopathy or myelopathy on exam. Symptoms not consistent with stroke especially given the bilaterality. Also consider dystonia, not currently on psych medications though. Neurological exam is now normal and patient would like to go home. Recommendations: No need for additional inpatient neurological tests such as MRI of the brain or cervical spine I consider taking the patient off work, but she would like to continue working and she understands that she can call for a work excuse if symptoms recur She will return to my clinic for an outpatient EMG of the left upper extremity. Continue aspirin and statin Okay for discharge Thank you for letting me help with the patient's care. JUANJOSE SCHMIDT MD Aug 28, 2021 14:26
[2021-08-28] MEDS ORDERED: ATOR40TA59 PO (15:05)
[2021-08-28] MEDS ORDERED: ASPI-886 PO (15:05)
--- NOTE | 2021-08-28 15:06 | DISCH ---
DISCHARGE INSTRUCTIONS Condition on Discharge Condition on Discharge: Stable Activity After Discharge Activity Instructions for Disc: Activity as tolerated Lifting Instructions after Dis: No pulling or pushing Exercise Instruction after Dis: Walk 30 min, 3 x per week Weight Bearing Status after Di: As tolerated Diet after Discharge Diet after Discharge: Cardiac Follow-Up Follow up with: PCP within 2 weeks of discharge Follow Up With: Neurology as needed or as scheduled CLEMENTINA FLOREZ MD Aug 28, 2021 15:06
[2021-08-28] MEDS ORDERED: ATORVASTATIN CALCIUM 40 MG TABLET. PO SCH (21:00)
--- NOTE | 2021-09-02 15:40 | PDOC3 ---
[facility]-Discharge Summary Date of Admission: Date of Admission: Aug 27, 2021 Date of Discharge: Date of Discharge: Aug 28, 2021 Discharge Diagnosis: Discharge Diagnosis: Acute TIA, rule out ischemic stroke Hypokalemia Polysubstance abuse Consults: Consults: Per neurology: Recommendations: No need for additional inpatient neurological tests such as MRI of the brain or cervical spine I consider taking the patient off work, but she would like to continue working and she understands that she can call for a work excuse if symptoms recur She will return to my clinic for an outpatient EMG of the left upper extremity. Continue aspirin and statin Okay for discharge Procedures: Procedures: REASON: strokelike sx; left-sided weakness and numbness x3 days [phone] PROCEDURE: CT HEAD WO CONTRAST Exam: CT head INDICATION: Stroke like symptoms TECHNIQUE: Sequential axial images through the head were obtained without the administration of IV contrast. Exposure: One or more of the following in the visualized dose reduction techniques were utilized for this examination: 1. Automated exposure control 2. Adjustment of the MA and/or KV according to patient size 3. Use of iterative of reconstructive technique Comparisons: None FINDINGS: No focal parenchymal lesion or hemorrhage is identified. There is no midline shift or sulcal effacement. Mild patchy hypodensity in the periventricular white matter. No acute vascular territory infarction is identified. De Souza-white distinction is preserved. The ventricular system is within normal limits without compression hydrocephalus. The basal cisterns are well maintained. The visualized portions of the paranasal sinuses and mastoid air cells are well- pneumatized. No acute fractures. IMPRESSION: Mild small vessel ischemic change, technically age indeterminate without recent prior imaging. PROCEDURE: CT ANGIOGRAPHY HEAD AND NECK PQRS Compliance Statement: One or more of the following individualized dose reduction techniques were utilized for this examination: 1. Automated exposure control 2. Adjustment of the mA and/or kV according to patient size 3. Use of iterative reconstruction technique CTA HEAD AND NECK W/WO CONTRAST Clinical Indication: Reason: strokelike sx; left-sided weakness and numbness x3 days Comparison: CT head without contrast, earlier same day. Technique: Helical CT imaging from inferior to the aortic arch to the skull vertex is performed after 75 cc of Omnipaque [address] angiogram protocol. 3-D MIP reconstructions of the cervical carotid arteries and [place] are performed. PQRS Compliance Statement - Stenosis calculations for CT, MR and conventional angiography are based upon measurement of the distal ICA diameter in accordance with the NASCET methodology. Stenosis calculations for carotid ultrasound studies are derived from validated velocity criteria which are known to correlate with the NASCET methodology. Findings: The common carotid arteries, carotid bifurcations, and the cervical internal carotid arteries are patent. The cervical vertebral arteries are patent. The left vertebral artery is dominant. The posterior circulation is intact. There is persistent origin of the posterior cerebral arteries. There are duplicated left posterior cerebral arteries. The distal internal carotid arteries are patent. Anterior circulation is intact. No intracranial aneurysm or significant arterial stenosis is identified. The dural venous sinuses are unremarkable. There is no abnormal enhancement in the brain parenchyma. There is no cervical adenopathy. The upper lungs are clear. Straightening of normal cervical lordosis may be positional or due to muscle spasm. There are degenerative changes of the cervical spine. Patient is edentulous. IMPRESSION: 1. There is no large vessel occlusion. 2. There is no significant stenosis of the cervical carotid or vertebral arteries. Hospital Course: Hospital Course: 56-year-old female with a history of schizophrenia and bipolar disorder not on medication for some time who comes in for left-sided weakness and numbness for the past 2 weeks and worsening for the past 3 days. She states that her left arm and is in a clenched hand and difficult to move. She states "it feels like a claw and not like my hand." She denies any injury to the hand in question. About 3 days ago patient also noticed left-sided numbness and weakness. Denies any fevers, chest pain Per Dr. Alexander note: Patient drove here in her private vehicle and ambulated into the waiting room without difficulty. She was brought back to an ED bed by wheelchair but ambulated with a steady, narrow gait to her ED bed from the wheelchair. She seems to have a distractible facial droop which switches sides. She seems to have somewhat distractible weakness. She would not move her left leg at all for the nurse but for me she has 5 out of 5 strength at all joints there. She ambulated and as above. She has a very inconsistent stroke evaluation. Vital signs are appropriate here and the patient is in no acute distress. Patient seen and evaluated by neurology. See recommendations above. By time of discharge patient was pretty much asymptomatic. She will need to continue with aspirin and statins for her high cholesterol. Rest of hospital course was uneventful. Disposition: Disposition/Orders: D/C to Home Activity: Activity: Resume previous activity Diet: Diet: Cardiac Medications: Home Meds Active Scripts Aspirin (ASPIRIN EC) 81 Mg Tablet.dr, 81 MG PO DAILYWBKFT for stroke prevention for 30 Days, #30 TAB.SR 2 Refills Prov:CLEMENTINA FLOREZ MD 08/28/21 Atorvastatin Calcium (ATORVASTATIN CALCIUM) 40 Mg Tablet, 40 MG PO QHS for cholesterol for 30 Days, #30 TAB 2 Refills Prov:CLEMENTINA FLOREZ MD 08/28/21 Reported Medications [Buspar] No Conflict Check, TID 08/28/21 Hydroxyzine Pamoate (VISTARIL) 50 Mg Capsule, 75 MG PO TID for ANXIETY, CAP 08/28/21 Doxepin Hcl (DOXEPIN HCL) 150 Mg Capsule, 1 CAP PO QHS for NERVE PAIN, DEPRESSION for 30 Days, #30 CAP 0 Refills 08/28/21 Quetiapine Fumarate (SEROQUEL) 200 Mg Tablet, 200 MG PO HS for SCHISOPHRENIA, DEPRESSION, TAB 08/28/21 Scheduled Aspirin (Aspirin Ec), 81 MG PO DAILYWBKFT Atorvastatin Calcium (Atorvastatin Calcium), 40 MG PO QHS Doxepin Hcl (Doxepin Hcl), 1 CAP PO QHS, (Reported) Hydroxyzine Pamoate (Vistaril), 75 MG PO TID, (Reported) Quetiapine Fumarate (Seroquel), 200 MG PO HS, (Reported) [Buspar], TID, (Reported) Total Time: Total Time: Total time spent was 35 minutes in preparing scripts, discharge planning with SWI and RN and preparing this discharge summary Patient seen and examined on day of discharge. No acute abnormal findings. Justicifation of Admission Dx: Justifications for Admission: Justification of Admission Dx: Comment: CLEMENTINA FLOREZ MD Sep 02, 2021 15:40
== END 2021-08-28 15:00 | disposition home or self-care (01) | DRG 69 ==
LOC: ER 19:19 → 1 WEST ICU 21:27 → 6 SOUTH 23:01
PROVIDERS: ADMIT Internal Medicine; ATTEND Internal Medicine
DX: G45.9 Transient cerebral ischemic attack, unspecified (principal); G64 Other disorders of peripheral nervous system; R07.89 Other chest pain; E87.6 Hypokalemia; F10.129 Alcohol abuse with intoxication, unspecified; F12.90 Cannabis use, unspecified, uncomplicated; F17.200 Nicotine dependence, unspecified, uncomplicated; F20.9 Schizophrenia, unspecified; F31.9 Bipolar disorder, unspecified; F43.10 Post-traumatic stress disorder, unspecified; I10 Essential (primary) hypertension; R29.810 Facial weakness; Z79.82 Long term (current) use of aspirin; F41.9 Anxiety disorder, unspecified; Z88.0 Allergy status to penicillin
CPT/HCPCS: 36415; 70450; 70496; 70498; 71045; 80048; 80053; 80061; 80307; 84484; 85025; 85610; 85730; 93005; 96365; 96375; G0480; J0780; J1200; J1650; J2405; J3411; J7030; J7060; Q9967; 99285-25; G0378